=== PATIENT | female | born 1965 | race Two or more races ===

== ENCOUNTER 2022-03-19 11:45 | Outpatient (CLI) | payer OTHER | END 2022-03-19 11:46 | disposition home or self-care (01) | LOC: LAB 11:45 | PROVIDERS: ATTEND Internal Medicine | DX: J06.9 Acute upper respiratory infection, unspecified (principal); Z11.52 Encounter for screening for COVID-19 ==

== ENCOUNTER 2023-09-01 15:52 | Outpatient (CLI) | payer OTHER ==
[2023-09-01 16:25] LABS: URINE APPEARANCE Clear; URINE BILIRRUBIN Negative (NEGATIVE); URINE BLOOD Negative; URINE COLOR Yellow; URINE GLUCOSE Negative (NEGATIVE); URINE LEUKOCYTE Moderate; URINE NITRATE Negative; URINE PROTEIN Negative (NEGATIVE); URINE UROBILINOGEN 0.2 E.U./dl
[2023-09-01 16:29] LABS: URINE RBC 3.2 uL (0.0-20.8); URINE WBC 280.2 uL (0.0-23.2)
[2023-09-01 16:53] LABS: URINE BACTERIA > 9821.5 uL (0.0-1933)
== END 2023-09-01 23:00 | disposition home or self-care (01) ==
LOC: LAB 15:52
PROVIDERS: ATTEND Obstetrics & Gynecology
DX: R19.00 Intra-abdominal and pelvic swelling, mass and lump, unspecified site (principal); N39.0 Urinary tract infection, site not specified